=== PATIENT | female | born 1960 | race Caucasian/White ===

== ENCOUNTER 2022-05-16 19:22 | Inpatient (IN) | payer OTHER ==
[~2022-05-16] VITALS: Ht 165.1 cm; Wt 102.0 kg
[~2022-05-16 19:22] MED LIST: CHOL100018 PO; GABA-1201 PO; OLAN7.5T22 PO; OMEP10 PO; PARO-38 PO; PREM625 PO; PROV2.5 PO
[2022-05-16] MEDS ORDERED: 0.9% SODIUM CHLORIDE 10 ML SYRINGE IVP PRN (20:00)
[2022-05-16 20:19] LABS: COVID AG,FIA SOURCE NASAL SWAB
[2022-05-16] MEDS ORDERED: CHOL100062 PO (20:20)
[2022-05-16] MEDS ORDERED: GABA800T9 PO (20:20)
[2022-05-16] MEDS ORDERED: OMEP20CA12 PO (20:20)
[2022-05-16] MEDS ORDERED: ATOR10TA69 PO (20:20)
[2022-05-16] MEDS ORDERED: PARO40TA72 PO (20:20)
[2022-05-16] MEDS ORDERED: CYCL10TA16 PO (20:20)
[2022-05-16] MEDS ORDERED: HYDR-4061 PO (20:20)
[2022-05-16] MEDS ORDERED: HYDR25TA PO (20:20)
[2022-05-16 20:25] LABS: BASOPHILS % (AUTO) 0.5 % (0.0-2.0); EOSINOPHILS % (AUTO) 1.5 % (1.0-6.0); HEMOGLOBIN 11.9 g/dL (12.0-16.0); LYMPHOCYTES # (AUTO) 1.5 K/uL (1.0-4.8); LYMPHOCYTES % (AUTO) 27.4 % (22.0-44.0); MEAN CORPUSCULAR HEMOGLOBIN 19.5 pg (26.0-34.0); MEAN CORPUSCULAR HGB CONC 32.1 G/dL (31.0-37.0); MEAN CORPUSCULAR VOLUME 61 fL (80-100); MONOCYTES # (AUTO) 0.8 K/uL (0.1-1.0); MONOCYTES % (AUTO) 13.6 % (2.0-9.0); NEUTROPHILS # (AUTO) 3.1 K/uL (1.8-7.7); PLATELET COUNT (AUTO) 215 K/uL (150-450); RED BLOOD CELL COUNT(AUTO) 6.08 MIL/uL (4.00-5.20); RED CELL DISTRIBUTION WIDTH 23.2 % (11.5-14.5)
[2022-05-16 20:33] LABS: ANION GAP 14 mmol/L (8-16); CALCIUM, TOTAL 9.2 mg/dL (8.8-10.5); CARBON DIOXIDE 29 mmol/L (22-29); CHLORIDE 95 mmol/L (98-107); CREATININE 2.61 mg/dL (0.60-1.30); GLOMERULAR FILTR. RATE CALC 19 mL/min (>60); GLUCOSE,RANDOM 129 mg/dL (70-110); POTASSIUM 3.2 mmol/L (3.5-5.1); SODIUM SERUM 138 mmol/L (136-145); UREA NITROGEN, BLOOD 32 mg/dL (7-18)
[2022-05-16 20:37] LABS: PROTHROMBIN TIME 10.4 SEC (9.4-11.6)
[2022-05-16 20:38] LABS: INFLUENZA TYPE A NEGATIVE FOR TYPE A (NEGATIVE); INFLUENZA TYPE B NEGATIVE FOR TYPE B (NEGATIVE)
[2022-05-16 20:39] LABS: PLATELET MORPHOLOGY COMMENT LARGE PLTS PRESENT
[2022-05-16 20:43] LABS: LACTIC ACID 1.4 mmol/L (0.4-2.0)
[2022-05-16 20:44] LABS: ALANINE AMINOTRANSFERASE 29 U/L (12-78); ALBUMIN 3.9 g/dL (3.4-5.0); ALKALINE PHOSPHATASE 109 U/L (46-116); ASPARTATE AMINOTRANSFERASE 35 U/L (15-37); BILIRUBIN,TOTAL 0.2 mg/dL (0.1-1.0); CREATINE KINASE, TOTAL ONLY 364 U/L (26-192); TOTAL PROTEIN, SERUM 7.8 g/dL (6.4-8.2)
[2022-05-16] MEDS ORDERED: POTASSIUM CHLORIDE 20 MEQ ER TABLET PO ONE (20:45)
[2022-05-16] MEDS ORDERED: BUPR-317 PO (20:45)
[2022-05-16] MEDS ORDERED: SODIUM CHLORIDE 0.9% 1,000 ML IV ONE ×2 (20:45→21:00)
[2022-05-16] MEDS ORDERED: LOSA100T58 PO (20:45)
[2022-05-16 20:46] LABS: B-TYPE NATRIURETIC PEPTIDE < 5 pg/mL (0-100)
[2022-05-16] MEDS ORDERED: ACETAMINOPHEN 325 MG TABLET PO PRN (21:00)
[2022-05-16] MEDS ORDERED: ONDANSETRON HCL 4 MG/2 ML VIAL IVP PRN (21:00)
[2022-05-16 21:13] LABS: D-DIMER 0.35 mg/L FEU (0.00-0.50)
[2022-05-16 21:38] LABS: C-REACTIVE PROTEIN QUANT 0.34 mg/dL (0.00-0.30); FERRITIN 34 ng/mL (8-252)
[2022-05-16] MEDS ORDERED: POTASSIUM CHLORIDE 10% 40 MEQ/30 ML LIQUID UDCUP PO ONE (22:00)
[2022-05-17] MEDS ORDERED: HEPARIN SODIUM,PORCINE 5,000 UNITS/ML VIAL SQ SCH
[2022-05-17 05:27] LABS: CALCIUM, TOTAL 8.6 mg/dL (8.8-10.5); CREATININE 2.39 mg/dL (0.60-1.30); MAGNESIUM 2.3 mg/dL (1.80-2.40); POTASSIUM 3.1 mmol/L (3.5-5.1)
[2022-05-17 07:21] LABS: APPEARANCE,URINE HAZY (CLEAR); BILIRUBIN,URINE NEGATIVE (NEGATIVE); GLUCOSE, URINE (UA) NEGATIVE (NEGATIVE); KETONES,URINE NEGATIVE (NEGATIVE); LEUKOCYTE ESTERASE ,URINE LARGE (NEGATIVE); NITRATE,URINE NEGATIVE (NEGATIVE); OCCULT BLOOD,URINE NEGATIVE (NEGATIVE); PH,URINE 5.5 (5.0-8.0); PROTEIN,URINE 30-70 mg/dL (NEGATIVE); SPECIFIC GRAVITIY, URINE 1.015 (1.003-1.030); UROBILINOGEN,URINE <=1.0 mg/dL (<=1.0)
[2022-05-17 07:24] LABS: BACTERIA,URINE Many /HPF (None Seen); RBC,URINE None Seen /HPF (0-2); SQUAMOUS EPITHELIAL CELL,UR Moderate /LPF (None Seen)
[2022-05-17 07:25] LABS: CREATININE,URINE RANDOM 153.5 mg/dL (30.0-125.0)
[2022-05-17 07:34] LABS: AMPHET/METH SCREEN,URINE NEGATIVE (NEGATIVE); BARBITURATE SCREEN, URINE NEGATIVE (NEGATIVE); BENZODIAZEPINES SCREEN,URINE NEGATIVE (NEGATIVE); CANNABINOID SCREEN,URINE NEGATIVE (NEGATIVE); COCAINE SCREEN,URINE NEGATIVE (NEGATIVE); METHADONE SCREEN, URINE NEGATIVE (NEGATIVE); OPIATE SCREEN,URINE NEGATIVE (NEGATIVE); PHENCYCLIDINE SCREEN,URINE NEGATIVE (NEGATIVE)
[2022-05-17 08:29] VITALS: BP 100/53
[2022-05-17] MEDS: ATORVASTATIN CALCIUM 10 MG TABLET PO SCH (10:27)
[2022-05-17] MEDS: OMEPRAZOLE 20 MG CAPSULE PO SCH (10:27)
[2022-05-17] MEDS: BuPROPion HCL XL 150 MG ER TABLET PO SCH (10:28)
[2022-05-17] MEDS: HEPARIN SODIUM,PORCINE 5,000 UNITS/ML VIAL SQ SCH ×2 (10:31→17:21)
[2022-05-17] MEDS ORDERED: POTASSIUM CHLORIDE 20 MEQ ER TABLET PO ONE (11:00)
[2022-05-17 12:01] VITALS: BP 115/59
[2022-05-17 12:19] LABS: BASOPHILS % (AUTO) 0.5 % (0.0-2.0); EOSINOPHILS % (AUTO) 2.3 % (1.0-6.0); HEMATOCRIT 32.7 % (36-46); HEMOGLOBIN 10.5 g/dL (12.0-16.0); LYMPHOCYTES # (AUTO) 2.3 K/uL (1.0-4.8); LYMPHOCYTES % (AUTO) 49.3 % (22.0-44.0); MEAN CORPUSCULAR HEMOGLOBIN 19.3 pg (26.0-34.0); MEAN CORPUSCULAR HGB CONC 32.2 G/dL (31.0-37.0); MEAN CORPUSCULAR VOLUME 60 fL (80-100); MONOCYTES # (AUTO) 0.6 K/uL (0.1-1.0); MONOCYTES % (AUTO) 13.8 % (2.0-9.0); NEUTROPHILS # (AUTO) 1.6 K/uL (1.8-7.7); NEUTROPHILS % (AUTO) 34.1 % (40.0-70.0); PLATELET COUNT (AUTO) 177 K/uL (150-450); RED BLOOD CELL COUNT(AUTO) 5.45 MIL/uL (4.00-5.20)
[2022-05-17] MEDS: CefTRIAXone 1 GM/DEXTROSE 50 ML IV SCH (13:30)
[2022-05-17] MEDS: SODIUM CHLORIDE 0.9% 1,000 ML IV SCH (13:31)
[2022-05-17 15:28] VITALS: BP 110/59
[2022-05-17] MEDS: PARoxetine HCL 20 MG TABLET PO SCH (20:18)
[2022-05-17 20:41] VITALS: BP 89/49
[2022-05-17] MEDS ORDERED: CYCLOBENZAPRINE HCL 10 MG TABLET PO SCH (21:00)
[2022-05-18 00:43] VITALS: BP 123/61
[2022-05-18] MEDS: HEPARIN SODIUM,PORCINE 5,000 UNITS/ML VIAL SQ SCH ×4 (01:14→23:36)
[2022-05-18] MEDS: SODIUM CHLORIDE 0.9% 1,000 ML IV SCH (01:14)
[2022-05-18 04:50] VITALS: BP 133/66
[2022-05-18 07:50] LABS: ANION GAP 9 mmol/L (8-16); CALCIUM, TOTAL 8.3 mg/dL (8.8-10.5); CARBON DIOXIDE 29 mmol/L (22-29); CHLORIDE 105 mmol/L (98-107); CREATININE 0.83 mg/dL (0.60-1.30); GLUCOSE,RANDOM 77 mg/dL (70-110); POTASSIUM 3.3 mmol/L (3.5-5.1); SODIUM SERUM 143 mmol/L (136-145); UREA NITROGEN, BLOOD 15 mg/dL (7-18)
[2022-05-18 07:59] LABS: GLOMERULAR FILTR. RATE CALC > 60 mL/min (>60)
[2022-05-18 08:06] VITALS: BP 131/72
[2022-05-18] MEDS: ATORVASTATIN CALCIUM 10 MG TABLET PO SCH (08:10)
[2022-05-18] MEDS: POTASSIUM CHLORIDE 10% 40 MEQ/30 ML LIQUID UDCUP PO SCH (08:10)
[2022-05-18] MEDS: OMEPRAZOLE 20 MG CAPSULE PO SCH (08:10)
[2022-05-18] MEDS: BuPROPion HCL XL 150 MG ER TABLET PO SCH (08:10)
[2022-05-18] MEDS ORDERED: CefTRIAXone 1 GM/DEXTROSE 50 ML IV SCH (11:00)
[2022-05-18 11:17] VITALS: BP 123/76
[2022-05-18] MEDS: CefTRIAXone 1 GM/DEXTROSE 50 ML IV SCH (12:22)
[2022-05-18 16:00] VITALS: BP 130/60
[2022-05-18] MEDS: PARoxetine HCL 20 MG TABLET PO SCH (20:19)
[2022-05-18 20:20] VITALS: BP 129/65
[2022-05-19] VITALS (7 sets, daily range): BP systolic 127–152; BP diastolic 57–88
[2022-05-19 08:37] LABS: ANION GAP 8 mmol/L (8-16); CALCIUM, TOTAL 8.9 mg/dL (8.8-10.5); CARBON DIOXIDE 32 mmol/L (22-29); CHLORIDE 104 mmol/L (98-107); GLOMERULAR FILTR. RATE CALC > 60 mL/min (>60); GLUCOSE,RANDOM 82 mg/dL (70-110); POTASSIUM 3.4 mmol/L (3.5-5.1); SODIUM SERUM 144 mmol/L (136-145); UREA NITROGEN, BLOOD 10 mg/dL (7-18)
[2022-05-19] MEDS ORDERED: LOSARTAN POTASSIUM 25 MG TABLET PO SCH (09:00)
[2022-05-19] MEDS: OMEPRAZOLE 20 MG CAPSULE PO SCH (09:28)
[2022-05-19] MEDS: HEPARIN SODIUM,PORCINE 5,000 UNITS/ML VIAL SQ SCH ×3 (09:28→23:16)
[2022-05-19] MEDS: BuPROPion HCL XL 150 MG ER TABLET PO SCH (09:28)
[2022-05-19] MEDS: ATORVASTATIN CALCIUM 10 MG TABLET PO SCH (09:28)
[2022-05-19] MEDS: POTASSIUM CHLORIDE 10% 40 MEQ/30 ML LIQUID UDCUP PO SCH (09:28)
[2022-05-19] MEDS ORDERED: GADOTERATE MEGLUMINE 10 MMOL/20 ML VIAL IVP ONE (09:57)
[2022-05-19] MEDS ORDERED: LORazepam 2 MG/ML VIAL IVP ONE (10:00)
[2022-05-19] MEDS: CefTRIAXone 1 GM/DEXTROSE 50 ML IV SCH (12:17)
[2022-05-19] MEDS: PARoxetine HCL 20 MG TABLET PO SCH (20:17)
[2022-05-20 03:49] VITALS: BP 142/67
[2022-05-20 08:30] VITALS: BP 138/68
[2022-05-20] MEDS: OMEPRAZOLE 20 MG CAPSULE PO SCH (08:34)
[2022-05-20] MEDS: BuPROPion HCL XL 150 MG ER TABLET PO SCH (08:34)
[2022-05-20] MEDS: ATORVASTATIN CALCIUM 10 MG TABLET PO SCH (08:34)
[2022-05-20] MEDS: HEPARIN SODIUM,PORCINE 5,000 UNITS/ML VIAL SQ SCH (08:34)
[2022-05-20] MEDS ORDERED: LOSARTAN POTASSIUM 50 MG TABLET PO SCH (09:00)
[2022-05-20 09:17] LABS: ANION GAP 7 mmol/L (8-16); CALCIUM, TOTAL 8.9 mg/dL (8.8-10.5); CARBON DIOXIDE 31 mmol/L (22-29); CHLORIDE 103 mmol/L (98-107); CREATININE 0.79 mg/dL (0.60-1.30); GLUCOSE,RANDOM 99 mg/dL (70-110); POTASSIUM 3.7 mmol/L (3.5-5.1); SODIUM SERUM 141 mmol/L (136-145); UREA NITROGEN, BLOOD 8 mg/dL (7-18)
[2022-05-20 09:20] LABS: GLOMERULAR FILTR. RATE CALC > 60 mL/min (>60)
[2022-05-20 11:08] VITALS: BP 133/76
[2022-05-20] MEDS ORDERED: LOSA-382 PO (11:19)
[2022-05-20] MEDS ORDERED: ACET-2247 PO (11:22)
[2022-05-20] MEDS: CefTRIAXone 1 GM/DEXTROSE 50 ML IV SCH (12:00)
== END 2022-05-20 14:30 | DRG 177 ==
LOC: EMS 19:22 → 5N 05-17 06:02
PROVIDERS: ADMIT Internal Medicine; ATTEND Internal Medicine
DX: U07.1 COVID-19 (principal); J12.82 Pneumonia due to coronavirus disease 2019; E87.1 Hypo-osmolality and hyponatremia; D63.1 Anemia in chronic kidney disease; N18.9 Chronic kidney disease, unspecified; Z28.310 Unvaccinated for COVID-19; I12.9 Hypertensive chronic kidney disease with stage 1 through stage 4 chronic kidney disease, or unspecified chronic kidney disease; E78.5 Hyperlipidemia, unspecified; Z96.651 Presence of right artificial knee joint; F25.9 Schizoaffective disorder, unspecified; N28.1 Cyst of kidney, acquired; F17.210 Nicotine dependence, cigarettes, uncomplicated; E87.6 Hypokalemia; E86.9 Volume depletion, unspecified; G89.29 Other chronic pain; K21.9 Gastro-esophageal reflux disease without esophagitis; M19.90 Unspecified osteoarthritis, unspecified site; M54.9 Dorsalgia, unspecified; E66.9 Obesity, unspecified; Z82.3 Family history of stroke; Z80.3 Family history of malignant neoplasm of breast; Z78.9 Other specified health status; Z68.37 Body mass index [BMI] 37.0-37.9, adult
CPT/HCPCS: 70450; 71045; 74183; 76770; 80048; 80053; 81001; 82550; 82570; 82728; 83605; 83735; 83880; 84132; 84145; 84300; 84484; 85025; 85379; 85384; 85610; 85730; 86140; 87040; 87086; 87804; 93005; 97116; 97162; 97530; 99285; J0696; J1644; J2060; J7030; 36415-L1; 36415-TC